=== PATIENT | female | born 1975 | race Two or more races ===

== ENCOUNTER 2021-12-07 06:08 | Outpatient (CLI) | payer OTHER | END 2021-12-07 06:09 | disposition home or self-care (01) | LOC: LAB 06:08 | PROVIDERS: ATTEND Internal Medicine | DX: E03.8 Other specified hypothyroidism (principal); E78.9 Disorder of lipoprotein metabolism, unspecified ==

== ENCOUNTER 2021-12-07 07:54 | Outpatient (CLI) | payer OTHER | END 2021-12-07 08:15 | disposition home or self-care (01) | LOC: NUCLEAR 07:54 | PROVIDERS: ATTEND Internal Medicine | DX: I20.8 Other forms of angina pectoris (principal); R06.02 Shortness of breath; R00.2 Palpitations ==